=== PATIENT | male | born 1940 | race Caucasian/White ===

== ENCOUNTER → 2016-08-13 | Outpatient (CLI) | payer OTHER ==
[~2016-08-13] MED LIST: ASPCH81X PO; ATOR10TA88 PO; CARV3.122 PO; FRS/40 PO; LISI-461 PO; MRC50 PO; SENN-61 PO; SIMV40TA2 PO; WARF6TAB PO; [UNRECOGNIZED DRUG - CODE] PO
[2016-08-13 12:57] LABS: INR 1.4 (0.9-1.1)
--- NOTE | 2016-08-18 10:26 | CODING QUERY NO DIAGNOSIS ---
Valid Physician Order Needed A valid physician order must be submitted in order to properly bill for the service(s) provided, including date of service(s), valid diagnosis, and physician signature. If these tests are done on a recurring basis the original physican order must be submitted in order to code and bill for the service(s) provided. Please fax us the original, signed physician order so that we may expedite billing to [phone] DOS 08/13/2016 * PT/INR Thank you Tg [facility] Information Management
== END | disposition home or self-care (01) ==
LOC: C.LABSPEC 12:13
PROVIDERS: ATTEND Family Medicine
DX: Z01.89 Encounter for other specified special examinations (principal)

== ENCOUNTER → 2017-03-01 | Outpatient (CLI) | payer OTHER ==
[~2017-03-01] MED LIST changes: -ATOR10TA88 PO; -LISI-461 PO
[2017-03-01 10:12] LABS: BASO % 0.2 %; BASO ABS # 0.01 K/uL (0-0.2); COMPLETE YES; EOS % 1.5 %; HEMATOCRIT 40.7 % (42-52); IG% 0.2 %; LYMPH % 8.1 %; LYMPH ABS # 0.47 K/uL (1.2-3.4); MEAN CELL VOLUME 95.5 fL (80-100); MEAN CORPUSCULAR HEMOGLOBIN 31.5 pg (25-34); MEAN CORPUSCULAR HGB CONC 32.9 g/dl (32-36); MEAN PLATELET VOLUME 9.7 fL (7.4-10.4); MONO % 9.6 %; NEUT % 80.4 %; PLATELET COUNT 254 K/uL (130-400); RED BLOOD COUNT 4.26 M/uL (4.7-6.1); WHITE BLOOD COUNT 5.83 K/uL (4.8-10.8)
[2017-03-01 10:29] LABS: PARTIAL THROMBOPLASTIN RATIO 1.1; PROTHROMBIN TIME (PATIENT) 10.2 SECONDS (9.0-12.0)
[2017-03-01 10:43] LABS: ALT/SGPT 20 U/L (12-78); AST/SGOT 18 U/L (15-37); BLOOD UREA NITROGEN 22 mg/dl (7-18); BUN/CREATININE RATIO 17.1 (10-20); CALCIUM 9.4 mg/dl (8.5-10.1); CARBON DIOXIDE 25 mmol/L (21-32); CHLORIDE 107 mmol/L (98-107); CREATININE 1.31 mg/dl (0.60-1.40); GLUCOSE 96 mg/dl (70-99); POTASSIUM 4.1 mmol/L (3.5-5.1); SODIUM 139 mmol/L (136-145)
[2017-03-01 10:45] LABS: ALB/GLOB RATIO 0.8 (0.9-2); ALKALINE PHOSPHATASE 94 U/L (45-117)
== END | disposition home or self-care (01) ==
LOC: C.LAB1850 09:18
PROVIDERS: ATTEND Internal Medicine Pulmonary Disease
DX: J90 Pleural effusion, not elsewhere classified (principal)

== ENCOUNTER 2017-03-02 07:21 | Day surgery (SDC) | payer OTHER ==
[2017-03-02] VITALS (17 sets, daily range): BP systolic 106–184; BP diastolic 52–105; PULSE 63–88; TEMP 36.5–36.7; O2SAT 93–100; Ht 176.5 cm; Wt 81.2 kg
[~2017-03-02] VITALS: Ht 176.5 cm; Wt 81.2 kg
[2017-03-02] MEDS ORDERED: LIDOCAINE HCL 2% LOCAL 50ML VIAL INFIL ONE (07:22)
[2017-03-02] MEDS ORDERED: LIDOCAINE 4% INH SOLN 4 ML BTL ONE (07:22)
[2017-03-02] MEDS ORDERED: MIDAZOLAM HCL 5 MG/ML 1 ML VIAL IV ONE ×2 (07:22→10:45)
[2017-03-02] MEDS ORDERED: FENTANYL CITRATE INJ 50 MCG/1 ML 2 ML VIAL IV ONE ×2 (07:22→10:45)
[2017-03-02] MEDS ORDERED: NURSING VERBAL MED ORDER ONE ×2 (08:05→10:30)
--- NOTE | 2017-03-02 08:25 | History and Physical ---
History & Physical Date of Service Mar 02, 2017. History & Physical Reason for Visit: Bronchoscopy and Thoracentesis HPI: Patient is a 76 yo male presenting for evaluation with bronchoscopy and thoracentesis today. The patient recently saw Dr. Casarez as an outpatient on for concerns of "right lung issues". The patient does have history of AV replacement for , mitral valve replacement for Mitral stenosis, and 2 vessel bypass for CAD in July at [facility]. He has been experiencing cold symptoms for the past 2 months. 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 He denies occupational exposures, but was in [place] for a time and was exposed to Agent [place] at the time. He does have history of smoking 2 packs per day x 10 years. He quit in 1940. He occasionally smoked a cigar since that time. He had a chest X-ray and subsequent CT scan of the chest when his cold/URI symptoms didn't improve. Chest X-ray 12/28/16 showed ill-defined area of consolidation/mass at the right lung base and with small right pleural effusion. PFTs 07/30/16 showed mild restriction. FVC 2.77/68% FEV1 2.28/78% FEV1/FVC 82% CT scan on 01/06/17 showed consolidation of the right lung base with adjacent pleural effusion. He has been experiencing a non-productive cough without pleuritic pain. Most recent Chest X-Ray from January 2017 showed increased pleural effusion and possible consolidation/rounded atelectasis versus mass. Active Problems 1. Aortic valvar stenosis (I35.0) 2. Chronic kidney disease, stage III (moderate) (N18.3) 3. Heart failure (I50.9) 4. Mitral valve stenosis (I05.0) 5. Ulcerative colitis (K51.90) Surgical History 1. History of aortic valve replacement 2. History of coronary artery bypass graft Social History Alcohol use (Z78.9) Current some day smoker (F17.200) Current Meds 1. Aspirin Low Dose 81 MG Oral Tablet Chewable; CHEW AND SWALLOW 1 TABLET DAILY 2. Carvedilol 3.125 MG Oral Tablet; TAKE ONE TABLET BY MOUTH TWICE DAILY WITH MORNING AND EVENING MEAL 3. Mercaptopurine 50 MG Oral Tablet; TAKE 1 AND 1/2 TABLETS DAILY 4. Simvastatin 20 MG Oral Tablet; TAKE 1 TABLET DAILY 5. SulfaSALAzine 500 MG Oral Tablet; TAKE 1 TABLET 4 TIMES DAILY Allergies 1. No Known Drug Allergies Physical Exam: General: Patient is awake, alert, cooperative, and in no acute distress. Well developed. Well-nourished. Skin: Normal appearance, texture, and temperature. No apparent rash or ecchymoses. HEENT: Normocephalic and atraumatic. Eyes are anicteric and non-erythematous. EOMI c PERRLA. Hearing intact and without difficulty. Nose appears normal and without drainage. Trachea midline. Thyroid appears normal, and neck is supple. Lungs: No respiratory distress. No accessory muscle use. Heart: Regular rate and rhythm. Extremities: No cyanosis or edema. Musculoskeletal: Gait normal and without difficulty. Freely moving extremities during exam. Neuro: Alert and oriented X3. CN II-XII grossly intact. Sensation and motor function grossly intact. Psych: Mood and affect are normal. Assessment and Plan: Small right pleural effusion with small right sided consolidation/atelectasis Plan for bronchoscopy and possible U/S guided thoracentesis.
[2017-03-02] MEDS ORDERED: DEXTROSE 5% 1000ML 1,000 ML IV SCH (09:00)
--- NOTE | 2017-03-02 09:15 | History & Physical Bridge Note ---
H&P Re-Evaluation Bridge Note: I have examined the patient, reviewed the History & Physical and in the interval since the performance of the History & Physical I have noted the following changes of clinical significance: No changes noted
--- NOTE | 2017-03-02 09:16 | Procedure Note ---
Pre-Mod Sedation Assessment General Date of Moderate Sedation: Mar 02, 2017. Vital Signs: Vital Signs Past 12 Hours Date Time Temp Pulse Resp B/P (MAP) Pulse Ox O2 Delivery O2 Flow Rate FiO2 03/02/17 08:07 36.5 71 20 167/75 (105) 95 Room Air Review Cardiovascular: regular rate, rhythm, no edema, no gallop, no JVD Abdomen: normal bowel sounds, non tender, soft, no organomegaly Lungs: + pertinent finding (decreased BS RLL with US showing heterogeneous consolidation in the pleural cavity ) Pre-Sedation Airway Assessment Oral Cavity: Dentures Able to Visualize Vocal Cords: Yes Short Thick Neck: Yes Hx of Sleep Apnea: No Smoking Status: Former Smoker Mallampati Classification: Class II ASA Classification: Class II Procedure Planning Contraindications-for Mod Sed: None Yes Notes The planned sedation has been discussed with the patient and consent obtained. I have identified the patient, determined the appropriateness of sedation and have assessed the patient immediately prior to the procedure. All medicine(s) and interventions are by my order.
--- NOTE | 2017-03-02 10:40 | Discharge Instructions ---
Discharge Instructions Date of Service Mar 02, 2017. Admission Reason for Admission: Pleural Effusion, Sob, W/Thoro By Dr Espinal Discharge Discharge Diagnosis / Problem: Pleural effusion, SOB, RLL Consolidation Discharge Goals Goal(s): Diagnostic testing Activity Recommendations Activity Limitations: resume your previous activity . Instructions / Follow-Up Instructions / Follow-Up Follow up with [facility] Current Hospital Diet Patient's current hospital diet: Discharge Diet Recommended Diet: Regular Diet Pending Studies Studies pending at discharge: no Medical Emergencies . Who to Call and When: Medical Emergencies: If at any time you feel your situation is an emergency, please call 911 immediately. . Non-Emergent Contact Non-Emergency issues call your: Primary Care Provider . . "Provider Documentation" section prepared by Ana Vega. . VTE Core Measure Inpt VTE Proph given/why not?: Other Anticoagulation (Aspirin)
--- NOTE | 2017-03-02 10:40 | Bronchoscopy Procedure Note ---
Bronchoscopy Procedure Note Procedure: Bronchoscopy, conscious sedation, transbronchial biopsies, bronchial lavage Consent: Obtained through the patient placed into the chart Pre-procedural diagnosis: Right lower lobe consolidation Post-procedural diagnosis: Right lower lobe consolidation possible PACU RN Start time: 939 End time: 1006 Total time: minutes Analgesia: 2% liquid lidocaine: Via nebulizer 4% gel lidocaine: Via right naris 2% liquid lidocaine: Via bronchoscopy Sedation: Versed IV: 2mg Fentanyl IV: 75 g Procedure: The Medrio video bronchoscope was used for this procedure and passed down through the left naris Right naris/posterior naris/posterior oropharynx: Anatomically within normal limits but the posterior nasopharyngeal region did have large mucous plugs Glottis: Anatomically within normal limits Vocal cords: Proper abduction and abduction, anatomically within normal limits Subglottis/trachea/Cathy: Anatomically within normal limits Right bronchial tree: Right mainstem bronchus: Anatomically within normal limits Right upper lobe: Anatomically within normal limits Bronchus intermedius: Anatomically within normal limits Right middle lobe: Anatomically within normal limits Right lower lobe: Anatomically within normal limits Findings: Minimal diffuse mucus plugging throughout all subsegment Left bronchial tree: Left mainstem bronchus: Anatomically within normal limits Left upper lobe: Anatomically within normal limits Lingula: Anatomically within normal limits Left lower lobe: Anatomically within normal limits Findings: Minimal diffuse mucous plugs throughout all subsegment Bronchial alveolar lavage: Right lower lobe Transbronchial biopsies: Right lower lobe fluoroscopically guided 7 EBL: 15cc notable from the right naris Complications: Right nasal bleed Follow-up: [facility]
[2017-03-02] MEDS ORDERED: HydrALAZINE HCL 20 MG/ML VIAL IV. ONE (10:45)
--- NOTE | 2017-03-02 10:48 | Procedure Note ---
Procedure Note Date of Service Mar 02, 2017. Procedure Note Bilateral ultrasound evaluation of the hemithoraces. No pleural effusion noted on the left side but there was signs of consolidative/heterogeneous infiltrate between the visceral and parietal pleura on the right hemithorax.
--- NOTE | 2017-03-02 11:28 | DIAGNOSTIC IMAGING REPORT ---
SINGLE VIEW CHEST CLINICAL HISTORY: Status post bronchoscopy and transbronchial biopsy. FINDINGS: An AP, portable, upright chest radiograph is compared to study dated 06/12/2013 and correlated with chest CT dated 01/06/2017. The patient is status post midline sternotomy. The heart is enlarged and there is atherosclerotic calcification of the thoracic aorta. The pulmonary vasculature is noncongested. A pleural effusion and consolidative change is again seen at the right lung base. The left lung appears clear. No pneumothorax is seen. The skeletal structures are osteopenic. The bony thorax is grossly intact. There is widening at the left acromio clavicular joint. IMPRESSION: 1. Airspace consolidation and pleural effusion are again seen at the right lung base. 2. No pneumothorax is seen post procedure. 3. The left lung appears clear. 4. Cardiomegaly without radiographic evidence of congestive failure. 5. There is widening at the left acromioclavicular joint, new from the 2013 examination. Electronically signed by: Dmitri Anders M.D. 03/02/2017 11:26 AM Dictated Date/Time: 03/02/2017 11:25 AM
== END 2017-03-02 12:30 | disposition home or self-care (01) ==
LOC: C.ACU 07:21
PROVIDERS: ATTEND Internal Medicine Pulmonary Disease
DX: J18.1 Lobar pneumonia, unspecified organism (principal); Z95.2 Presence of prosthetic heart valve; I25.10 Atherosclerotic heart disease of native coronary artery without angina pectoris; F17.200 Nicotine dependence, unspecified, uncomplicated; I35.0 Nonrheumatic aortic (valve) stenosis; N18.3 Chronic kidney disease, stage 3 (moderate); I50.9 Heart failure, unspecified; I05.0 Rheumatic mitral stenosis; K51.90 Ulcerative colitis, unspecified, without complications; Z78.9 Other specified health status; Z79.82 Long term (current) use of aspirin; Z79.899 Other long term (current) drug therapy

== ENCOUNTER → 2017-04-05 | Outpatient (CLI) | payer OTHER ==
[~2017-04-05] MED LIST changes: -FRS/40 PO; -SENN-61 PO; -WARF6TAB PO
--- NOTE | 2017-04-06 08:25 | PULMONARY FUNCTION TEST ---
Prebronchodilator spirometry displayed a moderate reduction in forced vital capacity with the presence of minimal small airways disease. There was no significant response to bronchodilator, but this should not preclude a therapeutic trial if clinically warranted. Lung volumes demonstrated significant air trapping and diffusion capacity was well within normal limits. OVERALL ASSESSMENT: Mild to moderate obstructive ventilatory defect even more pronounced at low lung volumes without a significant response to bronchodilator shown. Clinical correlation is needed.
== END | disposition home or self-care (01) ==
LOC: C.RC 12:42
PROVIDERS: ATTEND Internal Medicine Pulmonary Disease
DX: R06.02 Shortness of breath (principal); N18.3 Chronic kidney disease, stage 3 (moderate)

== ENCOUNTER → 2017-04-20 | Outpatient (CLI) | payer OTHER ==
--- NOTE | 2017-04-20 13:08 | DIAGNOSTIC IMAGING REPORT ---
CHEST 2 VIEWS ROUTINE CLINICAL HISTORY: Shortness of breath. COMPARISON STUDY: Chest CT January 06, 2017 and chest radiograph March 02, 2017. FINDINGS: There are median sternotomy wires. There is no pneumothorax. There is no evidence for pulmonary edema. A small right pleural effusion has slightly increased since prior exam of March 02, 2017. There is associated right basilar airspace opacity. IMPRESSION: Slight increase in a small right pleural effusion with associated right basilar airspace opacity since exam March 02, 2017. Radiographic follow up to ensure resolution is recommended to exclude the possibility of an underlying mass. Electronically signed by: Beto Espinoza M.D. 04/20/2017 1:07 PM Dictated Date/Time: 04/20/2017 1:05 PM
== END | disposition home or self-care (01) ==
LOC: C.RAD1850 12:46
PROVIDERS: ATTEND Internal Medicine Pulmonary Disease
DX: R06.02 Shortness of breath (principal); J90 Pleural effusion, not elsewhere classified

== ENCOUNTER → 2017-06-15 | Outpatient (CLI) | payer OTHER ==
--- NOTE | 2017-06-15 14:10 | DIAGNOSTIC IMAGING REPORT ---
CHEST 2 VIEWS ROUTINE CLINICAL HISTORY: R06.02, J90 dyspnea. COMPARISON STUDY: 04/20/2017 FINDINGS: Very small right effusion unchanged from the prior study. Chronic infiltrative change right base also unchanged. Mild stable cardiomegaly post median sternotomy. Lungs otherwise are clear. IMPRESSION: 1. Small right pleural effusion unchanged in the prior exam. 2. Chronic unchanged infiltrative change right base. The above report was generated using voice recognition software. It may contain grammatical, syntax or spelling errors. Electronically signed by: Frandy Vargas M.D. 06/15/2017 2:09 PM Dictated Date/Time: 06/15/2017 2:08 PM
== END | disposition home or self-care (01) ==
LOC: C.RAD1850 13:32
PROVIDERS: ATTEND Internal Medicine Pulmonary Disease
DX: R06.02 Shortness of breath (principal); J90 Pleural effusion, not elsewhere classified